=== PATIENT | female | born 1955 | race African-American/Black ===

== ENCOUNTER 2021-09-22 21:38 | Inpatient (IN) | payer MEDICARE, MEDICAID ==
[~2021-09-22] VITALS: Ht 172.7 cm; Wt 111.6 kg
[~2021-09-22 21:38] MED LIST: CARV12.545 PO; CLON0.1T PO; TOPUD PO; WARF5TAB76 PO
[2021-09-22] MEDS ORDERED: VANCOMYCIN 1 G PREMIX 200 ML IV ONE (21:45)
[2021-09-22] MEDS ORDERED: CEFTRIAXONE 1 G PREMIX 50 ML IV ONE (21:45)
[2021-09-22] MEDS ORDERED: CLINDAMYCIN 600 MG in DEXTROSE 5% WATER 50 ML IV ONE (22:00)
[2021-09-22] MEDS ORDERED: LACTATED RINGERS 500 ML IV SCH (22:00)
[2021-09-22] MEDS ORDERED: FENTANYL CITRATE 2,500 MCG in SODIUM CHLORIDE 0.9% 200 ML IV PRN (22:30)
[2021-09-22] MEDS ORDERED: MIDAZOLAM 100MG/100ML PMX 100 ML IV PRN (22:30)
[2021-09-22 22:38] LABS: BASOPHILS % 0.2 % (0.0-2.0); EOSINOPHILS % 0.9 % (0.0-5.0); HEMATOCRIT. 46.3 % (36.0-48.0); HEMOGLOBIN. 14.8 g/dL (12.0-16.0); LYMPHOCYTES % 8.1 % (20.0-50.0); MEAN CORPUSCULAR HEMOGLOBIN 28.6 pg (28.0-32.0); MEAN CORPUSCULAR VOLUME 89.6 fL (81.0-99.0); MEAN PLATELET VOLUME 9.6 fl (7.4-10.4); MONOCYTES % 6.6 % (2.0-8.0); NEUTROPHILS % 84.2 % (40.0-76.0); PLATELET 117 x1000/uL (130-400); RED BLOOD CELL COUNT 5.17 mill/uL (4.2-5.4)
[2021-09-22] MEDS ORDERED: CEFEPIME 2,000 MG in DEXT 5% WATER 100 ML IV NR (23:00)
[2021-09-22] MEDS ORDERED: EPINEPHRINE 5 MG in SODIUM CHLORIDE 0.9% 250 ML IV PRN (23:00)
[2021-09-22 23:31] LABS: CHLORIDE 104 mEq/L (98-107)
[2021-09-22 23:39] LABS: BG BASE EXCESS -2.2 mmol/L (-2.0-2.0); BG CARBOXYHEMOGLOBIN 0.5 % (0.5-1.5); BG DEOXYHEMOGLOBIN 3.8 % (0.0-5.0); BG FRACTION INSPIRED OXYGEN 100; BG HCO3 ACT 24.9 mmol/L (22.0-26.0); BG METHEMOGLOBIN 0.2 % (0.0-1.5); BG OXYGEN SATURATION 96.2 % (92.0-98.5); BG OXYHEMOGLOBIN 95.5 % (94.0-97.0); BG PCO2 51.6 mmHg (35.0-45.0); BG PH 7.301 (7.350-7.450); BG PO2 98.1 mmHg (75.0-100.0); BG SAMPLE SITE RIGHT BRACHIAL; BG TOTAL HEMOGLOBIN 14.9 g/dL (12.0-18.0); BG TOTAL RESPIRATORY RATE 20 b/min; BG VENT MODE VENT - AC
[2021-09-22] MEDS ORDERED: EPINEPHRINE 10 MG in SODIUM CHLORIDE 0.9% 250 ML IV PRN (23:45)
[2021-09-23] MEDS ORDERED: SODIUM CHLORIDE 0.9% 1000ML BAG (SEPSIS BOLUS) IV ONE (00:15)
[2021-09-23] MEDS ORDERED: NOREPINEPHRINE 32 MG in DEXTROSE 5% WATER 250 ML IV PRN (00:30)
[2021-09-23 00:51] LABS: CLARITY URINE TURBID (CLEAR); COLOR URINE DARK YELLOW (YELLOW); KETONES URINE NEGATIVE (NEGATIVE); LEUKOCYTE ESTERASE URINE TRACE (NEGATIVE); NITRITE URINE NEGATIVE (NEGATIVE); OCCULT BLOOD URINE 3+ (NEGATIVE); PROTEIN URINE 3+ (NEGATIVE); SPECIFIC GRAVITY URINE 1.023 (1.005-1.030)
[2021-09-23] MEDS ORDERED: VECURONIUM BROMIDE 10 MG/VIAL IV ONE (01:00)
[2021-09-23] MEDS ORDERED: ETOMIDATE 2MG/ML 10ML VIAL IV ONE (01:00)
[2021-09-23] MEDS ORDERED: SODIUM CHLORIDE 0.9% 10ML VIAL ONE (01:00)
[2021-09-23] MEDS ORDERED: ASPIRIN 325MG EC TABLET PO ONE (04:30)
[2021-09-23] MEDS ORDERED: ASPIRIN 300MG SUPP PR NR (05:00)
[2021-09-23] MEDS: DEXT 5%/0.45% NACL 1000ML 1,000 ML IV SCH (07:20)
[2021-09-23 08:57] LABS: BG BASE EXCESS -4.2 mmol/L (-2.0-2.0); BG CARBOXYHEMOGLOBIN 0.4 % (0.5-1.5); BG DEOXYHEMOGLOBIN 2.1 % (0.0-5.0); BG HCO3 ACT 21.6 mmol/L (22.0-26.0); BG METHEMOGLOBIN 0.3 % (0.0-1.5); BG OXYGEN SATURATION 97.9 % (92.0-98.5); BG OXYHEMOGLOBIN 97.2 % (94.0-97.0); BG PCO2 42.3 mmHg (35.0-45.0); BG PH 7.326 (7.350-7.450); BG PO2 111.6 mmHg (75.0-100.0); BG SAMPLE SITE RIGHT RADIAL; BG TOTAL HEMOGLOBIN 14.2 g/dL (12.0-18.0); BG VENT MODE VENT - AC
[2021-09-23 09:35] LABS: T4 FREE 1.15 ng/dL (0.76-1.46)
[2021-09-23] MEDS: ASPIRIN 81MG TABLET PO SCH (09:39)
[2021-09-23 09:53] LABS: CREATINE KINASE 8387 IU/L (26-192)
[2021-09-23] MEDS ORDERED: EPINEPHRINE 10 MG in SODIUM CHLORIDE 0.9% 240 ML IV PRN (10:00)
[2021-09-23 11:05] LABS: INR 2.6; PROTHROMBIN TIME 25.9 sec (9.6-11.0)
[2021-09-23 11:10] LABS: D-DIMER > 35.20 mg/L FEU (<0.50)
[2021-09-23] MEDS ORDERED: MEROPENEM 1,000 MG in SODIUM CHLORIDE 0.9% 100 ML IV SCH (14:30)
[2021-09-23] MEDS ORDERED: IPRATROPIUM/ALBUTEROL 0.5-3(2.5)MG/3ML NEB HHN PRN (14:30)
[2021-09-23] MEDS ORDERED: VANCOMYCIN 1500MG in DEXTROSE 5% WATER 250ML IV NR (15:00)
[2021-09-23 17:09] LABS: CREATINE KINASE MB FRACTION 16.7 ng/mL (0.5-3.6)
[2021-09-23] MEDS ORDERED: DEXTROSE 50% WATER 50ML SYRINGE IV PRN (18:15)
[2021-09-23] MEDS: INSULIN LISPRO 100 UNITS/ML SUBCUT SCH ×2 (18:36→21:17)
[2021-09-23] MEDS: IPRATROPIUM/ALBUTEROL 0.5-3(2.5)MG/3ML NEB HHN SCH (20:13)
[2021-09-23] MEDS ORDERED: BLOOD SUGAR DIAGNOSTIC STRIP TEST SCH (21:00)
[2021-09-23] MEDS ORDERED: FENTANYL CITRATE/PF 2,500 MCG in SODIUM CHLORIDE 0.9% 200 ML IV PRN (21:00)
[2021-09-23 23:16] LABS: CREATINE KINASE MB FRACTION 15.6 ng/mL (0.5-3.6)
[2021-09-24] VITALS (64 sets, daily range): BP systolic 85–156; BP diastolic 42–108
[2021-09-24] MEDS: DEXT 5%/0.45% NACL 1000ML 1,000 ML IV SCH ×3 (00:10→11:22)
[2021-09-24] MEDS: IPRATROPIUM/ALBUTEROL 0.5-3(2.5)MG/3ML NEB HHN SCH ×4 (02:00→21:07)
[2021-09-24] MEDS: EPINEPHRINE 10 MG in SODIUM CHLORIDE 0.9% 240 ML IV PRN ×4 (02:38→20:00)
[2021-09-24] MEDS: FENTANYL CITRATE/PF 2,500 MCG in SODIUM CHLORIDE 0.9% 200 ML IV PRN (03:55)
[2021-09-24] MEDS: MIDAZOLAM HCL 100 MG in SODIUM CHLORIDE 0.9% 80 ML IV PRN (03:56)
[2021-09-24] MEDS ORDERED: MEROPENEM 1,000 MG in SODIUM CHLORIDE 0.9% 100 ML IV SCH (05:00)
[2021-09-24 05:43] LABS: HEMATOCRIT. 44.6 % (36.0-48.0); HEMOGLOBIN. 14.7 g/dL (12.0-16.0); MEAN CORPUSCULAR HEMOGLOBIN 28.5 pg (28.0-32.0); MEAN CORPUSCULAR VOLUME 86.7 fL (81.0-99.0); MEAN PLATELET VOLUME 9.9 fl (7.4-10.4); PLATELET 136 x1000/uL (130-400); RED BLOOD CELL COUNT 5.14 mill/uL (4.2-5.4); RED CELL DISTRIBUTION WIDTH 16.3 % (11.6-14.6)
[2021-09-24] MEDS: INSULIN LISPRO 100 UNITS/ML SUBCUT SCH ×3 (05:45→17:41)
[2021-09-24] MEDS: BLOOD SUGAR DIAGNOSTIC STRIP TEST SCH ×3 (05:45→17:38)
[2021-09-24 06:22] LABS: CREATINE KINASE MB FRACTION 15.8 ng/mL (0.5-3.6)
[2021-09-24] MEDS ORDERED: POTASSIUM CHLORIDE INJ 40 MEQ in DEXT 5% WATER 250 ML IV ONE (07:00)
[2021-09-24 08:16] LABS: BG BASE EXCESS -4.1 mmol/L (-2.0-2.0); BG CARBOXYHEMOGLOBIN 0.5 % (0.5-1.5); BG DEOXYHEMOGLOBIN 0.3 % (0.0-5.0); BG FRACTION INSPIRED OXYGEN 60; BG HCO3 ACT 20.7 mmol/L (22.0-26.0); BG METHEMOGLOBIN 0.3 % (0.0-1.5); BG OXYGEN SATURATION 99.7 % (92.0-98.5); BG OXYHEMOGLOBIN 98.9 % (94.0-97.0); BG PCO2 37.2 mmHg (35.0-45.0); BG PH 7.363 (7.350-7.450); BG PO2 345.3 mmHg (75.0-100.0); BG SAMPLE SITE RIGHT RADIAL; BG TOTAL HEMOGLOBIN 14.8 g/dL (12.0-18.0); BG VENT MODE VENT - AC/VC
[2021-09-24 10:11] LABS: NUCLEATED RED BLOOD CELLS 1 /100 WBC
[2021-09-24 10:12] LABS: PLATELET ESTIMATE NORMAL
[2021-09-24 10:39] LABS: CREATINE KINASE 6089 IU/L (26-192)
[2021-09-24] MEDS: ASPIRIN 81MG TABLET PO SCH (12:20)
[2021-09-24] MEDS: PANTOPRAZOLE SODIUM 40 MG/VIAL IV SCH (14:19)
[2021-09-24 16:46] LABS: PROTHROMBIN TIME 51.6 sec (9.6-11.0)
[2021-09-24 16:54] LABS: INR 5.5
[2021-09-24] MEDS ORDERED: PHYTONADIONE 10MG/ML AMP SUBCUT NR (18:30)
[2021-09-24] MEDS: MEROPENEM 500MG in NORMAL SALINE 50ML IV SCH (21:00)
[2021-09-25] VITALS (59 sets, daily range): BP systolic 85–151; BP diastolic 40–88
[2021-09-25] MEDS: EPINEPHRINE 10 MG in SODIUM CHLORIDE 0.9% 240 ML IV PRN ×2 (00:15→04:55)
[2021-09-25] MEDS: IPRATROPIUM/ALBUTEROL 0.5-3(2.5)MG/3ML NEB HHN SCH ×5 (00:47→20:38)
[2021-09-25] MEDS: INSULIN LISPRO 100 UNITS/ML SUBCUT SCH ×4 (06:00→18:00)
[2021-09-25] MEDS: BLOOD SUGAR DIAGNOSTIC STRIP TEST SCH ×4 (06:00→18:00)
[2021-09-25 06:19] LABS: HEMATOCRIT. 41.3 % (36.0-48.0); HEMOGLOBIN. 13.8 g/dL (12.0-16.0); INR 2.3; MEAN CORPUSCULAR HEMOGLOBIN 28.8 pg (28.0-32.0); MEAN CORPUSCULAR VOLUME 86.2 fL (81.0-99.0); MEAN PLATELET VOLUME 10.5 fl (7.4-10.4); PLATELET 170 x1000/uL (130-400); PROTHROMBIN TIME 23.3 sec (9.6-11.0); RED BLOOD CELL COUNT 4.79 mill/uL (4.2-5.4); RED CELL DISTRIBUTION WIDTH 15.7 % (11.6-14.6)
[2021-09-25 06:33] LABS: CHLORIDE 113 mEq/L (98-107)
[2021-09-25 06:54] LABS: CREATINE KINASE 3716 IU/L (26-192); HEPATITIS B SURFACE ANTIGEN NEGATIVE
[2021-09-25 09:00] LABS: BG BASE EXCESS -3.8 mmol/L (-2.0-2.0); BG CARBOXYHEMOGLOBIN 0.5 % (0.5-1.5); BG DEOXYHEMOGLOBIN 3.4 % (0.0-5.0); BG FRACTION INSPIRED OXYGEN 40; BG HCO3 ACT 20.2 mmol/L (22.0-26.0); BG METHEMOGLOBIN 0.2 % (0.0-1.5); BG OXYGEN SATURATION 96.6 % (92.0-98.5); BG OXYHEMOGLOBIN 95.9 % (94.0-97.0); BG PH 7.392 (7.350-7.450); BG PO2 91.6 mmHg (75.0-100.0); BG SAMPLE SITE LEFT RADIAL; BG TOTAL HEMOGLOBIN 14.4 g/dL (12.0-18.0); BG VENT MODE VENT - AC
[2021-09-25] MEDS: MEROPENEM 500MG in NORMAL SALINE 50ML IV SCH ×2 (09:00→20:56)
[2021-09-25] MEDS ORDERED: FUROSEMIDE 40MG TABLET PO SCH (09:00)
[2021-09-25] MEDS: PANTOPRAZOLE SODIUM 40 MG/VIAL IV SCH (09:00)
[2021-09-25] MEDS: ASPIRIN 81MG TABLET PO SCH (09:00)
[2021-09-25 10:07] LABS: ANTI-NUCLEAR ANTIBODIES DIRECT Negative (Negative)
[2021-09-25] MEDS ORDERED: NOREPINEPHRINE 32 MG in DEXT 5% WATER 218 ML IV PRN (12:00)
[2021-09-25] MEDS: SODIUM HYPOCHLORITE 0.125% 473ML SOLUTION TOP SCH (12:00)
[2021-09-25] MEDS: DEXT 5%/0.45% NACL 1000ML 1,000 ML IV SCH (12:35)
[2021-09-25] MEDS ORDERED: LIDOCAINE HCL 1% 20ML VIAL (Pyxis) INJ MC SCH (13:00)
[2021-09-25 13:16] LABS: ATYPICAL LYMPHOCYTES 1; NUCLEATED RED BLOOD CELLS 1 /100 WBC; PLATELET ESTIMATE NORMAL
[2021-09-25] MEDS ORDERED: VANCOMYCIN 1 G PREMIX 200 ML IV NR (15:00)
[2021-09-25] MEDS: FENTANYL CITRATE/PF 2,500 MCG in SODIUM CHLORIDE 0.9% 200 ML IV PRN (19:03)
[2021-09-26] VITALS (96 sets, daily range): BP systolic 95–174; BP diastolic 47–101
[2021-09-26] MEDS: BLOOD SUGAR DIAGNOSTIC STRIP TEST SCH ×4 (00:15→17:40)
[2021-09-26] MEDS: IPRATROPIUM/ALBUTEROL 0.5-3(2.5)MG/3ML NEB HHN SCH ×3 (02:28→20:37)
[2021-09-26] MEDS: INSULIN LISPRO 100 UNITS/ML SUBCUT SCH ×4 (06:00→18:00)
[2021-09-26] MEDS: DEXT 5%/0.45% NACL 1000ML 1,000 ML IV SCH (06:05)
[2021-09-26 06:29] LABS: PHOSPHORUS 2.7 mg/dL (2.5-4.9)
[2021-09-26] MEDS: DEXTROSE 5% WATER 1,000 ML IV SCH (08:35)
[2021-09-26] MEDS: PANTOPRAZOLE SODIUM 40 MG/VIAL IV SCH (09:00)
[2021-09-26] MEDS: SODIUM HYPOCHLORITE 0.125% 473ML SOLUTION TOP SCH (09:00)
[2021-09-26] MEDS: ASPIRIN 81MG TABLET PO SCH (09:00)
[2021-09-26] MEDS: MEROPENEM 500MG in NORMAL SALINE 50ML IV SCH ×2 (09:00→21:16)
[2021-09-26 09:01] LABS: BG BASE EXCESS -0.7 mmol/L (-2.0-2.0); BG CARBOXYHEMOGLOBIN 1.3 % (0.5-1.5); BG DEOXYHEMOGLOBIN 7.5 % (0.0-5.0); BG FRACTION INSPIRED OXYGEN 35; BG HCO3 ACT 22.9 mmol/L (22.0-26.0); BG METHEMOGLOBIN 0.2 % (0.0-1.5); BG OXYGEN SATURATION 92.4 % (92.0-98.5); BG PCO2 34.4 mmHg (35.0-45.0); BG PH 7.441 (7.350-7.450); BG TOTAL HEMOGLOBIN 13.4 g/dL (12.0-18.0); BG VENT MODE VENT - AC
[2021-09-26 10:21] LABS: CREATINE KINASE 2197 IU/L (26-192)
[2021-09-26] MEDS ORDERED: IOHEXOL-350 100 ML BOTTLE ONE (10:54)
[2021-09-26] MEDS ORDERED: HEPARIN 5000 UNITS/ML VIAL IV PRN (11:15)
[2021-09-26 12:27] LABS: CHLORIDE 118 mEq/L (98-107)
[2021-09-26 12:42] LABS: HEMATOCRIT. 39.4 % (36.0-48.0); HEMOGLOBIN. 13.1 g/dL (12.0-16.0); MEAN CORPUSCULAR HEMOGLOBIN 28.8 pg (28.0-32.0); MEAN CORPUSCULAR VOLUME 86.6 fL (81.0-99.0); MEAN PLATELET VOLUME 9.3 fl (7.4-10.4); PLATELET 179 x1000/uL (130-400); RED BLOOD CELL COUNT 4.55 mill/uL (4.2-5.4); RED CELL DISTRIBUTION WIDTH 15.5 % (11.6-14.6)
[2021-09-26 13:10] LABS: NUCLEATED RED BLOOD CELLS 3 /100 WBC
[2021-09-26 13:11] LABS: PLATELET ESTIMATE NORMAL
[2021-09-26 13:26] LABS: INR 1.2; PARTIAL THROMBOPLASTIN TIME 26.6 sec (23.4-31.0); PROTHROMBIN TIME 12.4 sec (9.6-11.0)
[2021-09-26] MEDS ORDERED: HEPARIN 5000 UNITS/ML VIAL IV SCH (13:45)
[2021-09-26 13:46] LABS: CREATINE KINASE 2716 IU/L (26-192)
[2021-09-26] MEDS ORDERED: VANCOMYCIN 1 G PREMIX 200 ML IV SCH (15:00)
[2021-09-26] MEDS: HEPARIN 25,000 UNITS in DEXT 5% WATER 245 ML IV SCH (16:30)
[2021-09-26] MEDS: ACETYLCYSTEINE 200MG/ML 20% VIAL 4ML PO SCH (20:36)
[2021-09-27] VITALS (88 sets, daily range): BP systolic 80–169; BP diastolic 37–118
[2021-09-27] MEDS: IPRATROPIUM/ALBUTEROL 0.5-3(2.5)MG/3ML NEB HHN SCH ×4 (00:25→20:46)
[2021-09-27] MEDS: BLOOD SUGAR DIAGNOSTIC STRIP TEST SCH ×5 (00:54→23:33)
[2021-09-27] MEDS: MIDAZOLAM HCL 100 MG in SODIUM CHLORIDE 0.9% 80 ML IV PRN (03:32)
[2021-09-27] MEDS: INSULIN LISPRO 100 UNITS/ML SUBCUT SCH ×5 (06:00→23:33)
[2021-09-27 07:37] LABS: HEMATOCRIT. 38.6 % (36.0-48.0); HEMOGLOBIN. 12.7 g/dL (12.0-16.0); MEAN CORPUSCULAR HEMOGLOBIN 28.8 pg (28.0-32.0); MEAN CORPUSCULAR VOLUME 87.8 fL (81.0-99.0); MEAN PLATELET VOLUME 9.9 fl (7.4-10.4); PLATELET 211 x1000/uL (130-400); RED CELL DISTRIBUTION WIDTH 15.6 % (11.6-14.6)
[2021-09-27] MEDS: ACETYLCYSTEINE 200MG/ML 20% VIAL 4ML PO SCH ×3 (08:51→20:46)
[2021-09-27 09:12] LABS: PLATELET ESTIMATE NORMAL
[2021-09-27] MEDS: HEPARIN 25,000 UNITS in DEXT 5% WATER 245 ML IV SCH (09:15)
[2021-09-27 09:21] LABS: BG BASE EXCESS -0.2 mmol/L (-2.0-2.0); BG CARBOXYHEMOGLOBIN 1.2 % (0.5-1.5); BG DEOXYHEMOGLOBIN 6.4 % (0.0-5.0); BG FRACTION INSPIRED OXYGEN 35; BG HCO3 ACT 23.5 mmol/L (22.0-26.0); BG METHEMOGLOBIN 0.1 % (0.0-1.5); BG OXYGEN SATURATION 93.5 % (92.0-98.5); BG OXYHEMOGLOBIN 92.3 % (94.0-97.0); BG PCO2 35.2 mmHg (35.0-45.0); BG PH 7.442 (7.350-7.450); BG PO2 65.7 mmHg (75.0-100.0); BG SAMPLE SITE RIGHT RADIAL; BG TOTAL HEMOGLOBIN 13.5 g/dL (12.0-18.0); BG VENT MODE VENT - AC/VC
[2021-09-27] MEDS: PANTOPRAZOLE SODIUM 40 MG/VIAL IV SCH (09:29)
[2021-09-27] MEDS: DEXTROSE 5% WATER 1,000 ML IV SCH ×4 (09:30→23:45)
[2021-09-27] MEDS: ASPIRIN 81MG TABLET PO SCH (09:31)
[2021-09-27] MEDS: MEROPENEM 500MG in NORMAL SALINE 50ML IV SCH ×2 (09:31→20:51)
[2021-09-27] MEDS: SODIUM HYPOCHLORITE 0.125% 473ML SOLUTION TOP SCH (09:32)
[2021-09-27] MEDS: FENTANYL CITRATE/PF 2,500 MCG in SODIUM CHLORIDE 0.9% 200 ML IV PRN ×2 (11:33→19:46)
[2021-09-27] MEDS ORDERED: VANCOMYCIN 1 G PREMIX 200 ML IV NR (15:00)
[2021-09-28] VITALS (47 sets, daily range): BP systolic 92–138; BP diastolic 57–80
[2021-09-28] MEDS: HEPARIN 25,000 UNITS in DEXT 5% WATER 245 ML IV SCH ×2 (01:49→17:03)
[2021-09-28] MEDS: IPRATROPIUM/ALBUTEROL 0.5-3(2.5)MG/3ML NEB HHN SCH ×4 (02:27→21:30)
[2021-09-28] MEDS: INSULIN LISPRO 100 UNITS/ML SUBCUT SCH ×4 (05:22→23:03)
[2021-09-28] MEDS: BLOOD SUGAR DIAGNOSTIC STRIP TEST SCH ×4 (05:22→23:03)
[2021-09-28 06:57] LABS: HEMATOCRIT. 36.4 % (36.0-48.0); HEMOGLOBIN. 11.8 g/dL (12.0-16.0); MEAN CORPUSCULAR HEMOGLOBIN 28.1 pg (28.0-32.0); MEAN CORPUSCULAR VOLUME 87.1 fL (81.0-99.0); MEAN PLATELET VOLUME 10.3 fl (7.4-10.4); PLATELET 216 x1000/uL (130-400); RED BLOOD CELL COUNT 4.18 mill/uL (4.2-5.4); RED CELL DISTRIBUTION WIDTH 15.5 % (11.6-14.6)
[2021-09-28] MEDS ORDERED: POTASSIUM CHLORIDE 20MEQ/PACKET PO NR (08:15)
[2021-09-28] MEDS: MEROPENEM 500MG in NORMAL SALINE 50ML IV SCH (08:19)
[2021-09-28] MEDS: ASPIRIN 81MG TABLET PO SCH (08:19)
[2021-09-28] MEDS: PANTOPRAZOLE SODIUM 40 MG/VIAL IV SCH (08:19)
[2021-09-28] MEDS: SODIUM HYPOCHLORITE 0.125% 473ML SOLUTION TOP SCH (08:20)
[2021-09-28] MEDS: ACETYLCYSTEINE 200MG/ML 20% VIAL 4ML PO SCH ×2 (08:51→21:30)
[2021-09-28 10:35] LABS: NUCLEATED RED BLOOD CELLS 1 /100 WBC; PLATELET ESTIMATE NORMAL
[2021-09-28] MEDS ORDERED: VANCOMYCIN 1 G PREMIX 200 ML IV SCH (12:00)
[2021-09-28 13:02] LABS: BG BASE EXCESS 0.9 mmol/L (-2.0-2.0); BG CARBOXYHEMOGLOBIN 0.5 % (0.5-1.5); BG DEOXYHEMOGLOBIN 3.5 % (0.0-5.0); BG HCO3 ACT 26.4 mmol/L (22.0-26.0); BG METHEMOGLOBIN 0.2 % (0.0-1.5); BG OXYGEN SATURATION 96.5 % (92.0-98.5); BG OXYHEMOGLOBIN 95.8 % (94.0-97.0); BG PCO2 45.6 mmHg (35.0-45.0); BG PH 7.381 (7.350-7.450); BG PO2 86.3 mmHg (75.0-100.0); BG SAMPLE SITE RIGHT RADIAL; BG TOTAL HEMOGLOBIN 12.4 g/dL (12.0-18.0); BG VENT MODE VENT - AC
[2021-09-28] MEDS: DEXTROSE 5% WATER 1,000 ML IV SCH (13:05)
[2021-09-28] MEDS: FENTANYL CITRATE/PF 2,500 MCG in SODIUM CHLORIDE 0.9% 200 ML IV PRN (17:03)
[2021-09-28] MEDS: MIDAZOLAM HCL 100 MG in SODIUM CHLORIDE 0.9% 80 ML IV PRN (17:04)
[2021-09-28 21:47] LABS: CREATINE KINASE 1577 IU/L (26-192)
[2021-09-29] VITALS (44 sets, daily range): BP systolic 89–123; BP diastolic 56–74
[2021-09-29] MEDS: IPRATROPIUM/ALBUTEROL 0.5-3(2.5)MG/3ML NEB HHN SCH ×4 (01:33→20:41)
[2021-09-29] MEDS: DEXTROSE 5% WATER 1,000 ML IV SCH (03:03)
[2021-09-29] MEDS ORDERED: MIDAZOLAM 100MG/100ML PMX 100 ML IV PRN (05:00)
[2021-09-29] MEDS: INSULIN LISPRO 100 UNITS/ML SUBCUT SCH ×3 (06:00→18:00)
[2021-09-29] MEDS: BLOOD SUGAR DIAGNOSTIC STRIP TEST SCH ×3 (06:40→18:00)
[2021-09-29 06:49] LABS: HEMATOCRIT. 34.7 % (36.0-48.0); HEMOGLOBIN. 11.3 g/dL (12.0-16.0); MEAN CORPUSCULAR HEMOGLOBIN 28.8 pg (28.0-32.0); MEAN CORPUSCULAR VOLUME 88.5 fL (81.0-99.0); MEAN PLATELET VOLUME 8.7 fl (7.4-10.4); PLATELET 193 x1000/uL (130-400); RED BLOOD CELL COUNT 3.92 mill/uL (4.2-5.4); RED CELL DISTRIBUTION WIDTH 15.8 % (11.6-14.6)
[2021-09-29 07:12] LABS: PHOSPHORUS 4.6 mg/dL (2.5-4.9)
[2021-09-29] MEDS: PANTOPRAZOLE SODIUM 40 MG/VIAL IV SCH (08:08)
[2021-09-29] MEDS: ASPIRIN 81MG TABLET PO SCH (08:08)
[2021-09-29] MEDS: HEPARIN 25,000 UNITS in DEXT 5% WATER 245 ML IV SCH (08:08)
[2021-09-29] MEDS: SODIUM HYPOCHLORITE 0.125% 473ML SOLUTION TOP SCH (08:09)
[2021-09-29] MEDS: ACETYLCYSTEINE 200MG/ML 20% VIAL 4ML PO SCH (09:00)
[2021-09-29 10:48] LABS: BG BASE EXCESS -1.4 mmol/L (-2.0-2.0); BG CARBOXYHEMOGLOBIN 0.3 % (0.5-1.5); BG FRACTION INSPIRED OXYGEN 50; BG HCO3 ACT 23.7 mmol/L (22.0-26.0); BG METHEMOGLOBIN 0.3 % (0.0-1.5); BG OXYHEMOGLOBIN 97.4 % (94.0-97.0); BG PCO2 41.7 mmHg (35.0-45.0); BG PH 7.373 (7.350-7.450); BG PO2 113.9 mmHg (75.0-100.0); BG SAMPLE SITE RIGHT RADIAL; BG TOTAL HEMOGLOBIN 11.4 g/dL (12.0-18.0); BG VENT MODE VENT - AC
[2021-09-29 10:55] LABS: PLATELET ESTIMATE NORMAL
[2021-09-29] MEDS: METOCLOPRAMIDE HCL 10MG/2ML VIAL IV SCH (18:15)
[2021-09-30] VITALS (47 sets, daily range): BP systolic 97–168; BP diastolic 59–113
[2021-09-30] MEDS: FENTANYL CITRATE/PF 2,500 MCG in SODIUM CHLORIDE 0.9% 200 ML IV PRN (00:46)
[2021-09-30] MEDS: BLOOD SUGAR DIAGNOSTIC STRIP TEST SCH ×5 (00:46→23:22)
[2021-09-30] MEDS: IPRATROPIUM/ALBUTEROL 0.5-3(2.5)MG/3ML NEB HHN SCH ×4 (00:58→20:56)
[2021-09-30] MEDS: HEPARIN 25,000 UNITS in DEXT 5% WATER 245 ML IV SCH ×2 (02:10→19:22)
[2021-09-30] MEDS: DEXTROSE 5% WATER 1,000 ML IV SCH (02:10)
[2021-09-30 05:31] LABS: BASOPHILS % 0.4 % (0.0-2.0); EOSINOPHILS % 0.7 % (0.0-5.0); HEMATOCRIT. 36.5 % (36.0-48.0); HEMOGLOBIN. 11.8 g/dL (12.0-16.0); MEAN CORPUSCULAR HEMOGLOBIN 28.6 pg (28.0-32.0); MEAN CORPUSCULAR VOLUME 88.4 fL (81.0-99.0); MONOCYTES % 3.3 % (2.0-8.0); NEUTROPHILS % 87.6 % (40.0-76.0); PLATELET 229 x1000/uL (130-400); RED BLOOD CELL COUNT 4.13 mill/uL (4.2-5.4); RED CELL DISTRIBUTION WIDTH 15.5 % (11.6-14.6)
[2021-09-30 06:00] LABS: PHOSPHORUS 3.9 mg/dL (2.5-4.9)
[2021-09-30] MEDS: INSULIN LISPRO 100 UNITS/ML SUBCUT SCH ×5 (08:00→23:22)
[2021-09-30] MEDS ORDERED: POTASSIUM CHLORIDE 20MEQ/PACKET NG NR (09:00)
[2021-09-30] MEDS: PANTOPRAZOLE SODIUM 40 MG/VIAL IV SCH (09:34)
[2021-09-30] MEDS: ASPIRIN 81MG TABLET PO SCH (09:34)
[2021-09-30] MEDS: FUROSEMIDE 40MG/4ML VIAL IVP SCH ×2 (09:34→17:08)
[2021-09-30] MEDS: METOCLOPRAMIDE HCL 10MG/2ML VIAL IV SCH ×2 (09:34→17:08)
[2021-09-30] MEDS: SODIUM HYPOCHLORITE 0.125% 473ML SOLUTION TOP SCH (09:35)
[2021-09-30 10:12] LABS: BG BASE EXCESS 1.8 mmol/L (-2.0-2.0); BG CARBOXYHEMOGLOBIN 0.8 % (0.5-1.5); BG DEOXYHEMOGLOBIN 9.3 % (0.0-5.0); BG FRACTION INSPIRED OXYGEN 30; BG HCO3 ACT 26.1 mmol/L (22.0-26.0); BG METHEMOGLOBIN 0.3 % (0.0-1.5); BG OXYGEN SATURATION 90.6 % (92.0-98.5); BG OXYHEMOGLOBIN 89.6 % (94.0-97.0); BG PH 7.433 (7.350-7.450); BG PO2 58.3 mmHg (75.0-100.0); BG SAMPLE SITE RIGHT RADIAL; BG TOTAL HEMOGLOBIN 12.2 g/dL (12.0-18.0); BG VENT MODE VENT - AC
[2021-09-30] MEDS: MIDAZOLAM HCL 100 MG in SODIUM CHLORIDE 0.9% 100 ML IV PRN ×2 (11:57→19:21)
[2021-09-30] MEDS ORDERED: MEROPENEM 500 MG in SODIUM CHLORIDE 0.9% 50 ML IV SCH (17:00)
[2021-09-30] MEDS: MEROPENEM 500 MG in SODIUM CHLORIDE 0.9% 50 ML IV SCH (19:21)
[2021-10-01] VITALS (46 sets, daily range): BP systolic 88–130; BP diastolic 56–88
[2021-10-01] MEDS: IPRATROPIUM/ALBUTEROL 0.5-3(2.5)MG/3ML NEB HHN SCH ×4 (00:10→20:36)
[2021-10-01] MEDS: FENTANYL CITRATE/PF 2,500 MCG in SODIUM CHLORIDE 0.9% 200 ML IV PRN (02:20)
[2021-10-01] MEDS: DEXTROSE 5% WATER 1,000 ML IV SCH (03:44)
[2021-10-01] MEDS: BLOOD SUGAR DIAGNOSTIC STRIP TEST SCH ×4 (05:28→23:00)
[2021-10-01] MEDS: INSULIN LISPRO 100 UNITS/ML SUBCUT SCH ×4 (05:28→23:00)
[2021-10-01] MEDS: MEROPENEM 500 MG in SODIUM CHLORIDE 0.9% 50 ML IV SCH ×2 (05:53→17:11)
[2021-10-01 06:11] LABS: BASOPHILS % 0.4 % (0.0-2.0); EOSINOPHILS % 0.5 % (0.0-5.0); HEMATOCRIT. 35.1 % (36.0-48.0); HEMOGLOBIN. 10.9 g/dL (12.0-16.0); LYMPHOCYTES % 9.4 % (20.0-50.0); MEAN CORPUSCULAR HEMOGLOBIN 27.3 pg (28.0-32.0); MEAN CORPUSCULAR VOLUME 87.9 fL (81.0-99.0); MEAN PLATELET VOLUME 10.2 fl (7.4-10.4); MONOCYTES % 5.1 % (2.0-8.0); NEUTROPHILS % 84.6 % (40.0-76.0); PLATELET 218 x1000/uL (130-400); RED CELL DISTRIBUTION WIDTH 15.6 % (11.6-14.6)
[2021-10-01] MEDS: FUROSEMIDE 40MG/4ML VIAL IVP SCH ×2 (06:37→17:10)
[2021-10-01 08:44] LABS: BG BASE EXCESS 2.9 mmol/L (-2.0-2.0); BG CARBOXYHEMOGLOBIN 0.3 % (0.5-1.5); BG DEOXYHEMOGLOBIN 3.2 % (0.0-5.0); BG FRACTION INSPIRED OXYGEN 40; BG HCO3 ACT 27.6 mmol/L (22.0-26.0); BG METHEMOGLOBIN 0.3 % (0.0-1.5); BG OXYGEN SATURATION 96.8 % (92.0-98.5); BG OXYHEMOGLOBIN 96.2 % (94.0-97.0); BG PCO2 42.6 mmHg (35.0-45.0); BG PH 7.429 (7.350-7.450); BG PO2 92.4 mmHg (75.0-100.0); BG SAMPLE SITE RIGHT RADIAL; BG TOTAL HEMOGLOBIN 11.9 g/dL (12.0-18.0); BG VENT MODE VENT - AC
[2021-10-01] MEDS: ASPIRIN 81MG TABLET PO SCH (09:33)
[2021-10-01] MEDS: METOCLOPRAMIDE HCL 10MG/2ML VIAL IV SCH ×2 (09:33→17:10)
[2021-10-01] MEDS: PANTOPRAZOLE SODIUM 40 MG/VIAL IV SCH (09:33)
[2021-10-01] MEDS: HEPARIN 5000 UNITS/ML VIAL IV PRN (09:34)
[2021-10-01] MEDS: SODIUM HYPOCHLORITE 0.125% 473ML SOLUTION TOP SCH (09:34)
[2021-10-01] MEDS: HEPARIN 25,000 UNITS in DEXT 5% WATER 245 ML IV SCH (10:59)
[2021-10-02] VITALS (46 sets, daily range): BP systolic 82–123; BP diastolic 55–80
[2021-10-02] MEDS: HEPARIN 25,000 UNITS in DEXT 5% WATER 245 ML IV SCH ×2 (00:08→15:47)
[2021-10-02] MEDS: IPRATROPIUM/ALBUTEROL 0.5-3(2.5)MG/3ML NEB HHN SCH ×4 (01:27→21:16)
[2021-10-02 01:56] LABS: INR 1.1
[2021-10-02] MEDS: FENTANYL CITRATE/PF 2,500 MCG in SODIUM CHLORIDE 0.9% 200 ML IV PRN ×2 (02:40→17:23)
[2021-10-02] MEDS: MEROPENEM 500 MG in SODIUM CHLORIDE 0.9% 50 ML IV SCH ×2 (05:17→17:39)
[2021-10-02] MEDS: BLOOD SUGAR DIAGNOSTIC STRIP TEST SCH ×3 (05:17→17:39)
[2021-10-02] MEDS: INSULIN LISPRO 100 UNITS/ML SUBCUT SCH ×3 (05:17→17:39)
[2021-10-02] MEDS: FUROSEMIDE 40MG/4ML VIAL IVP SCH ×2 (06:34→17:39)
[2021-10-02] MEDS: MIDAZOLAM HCL 100 MG in SODIUM CHLORIDE 0.9% 100 ML IV PRN (06:34)
[2021-10-02 06:55] LABS: BASOPHILS % 0.5 % (0.0-2.0); EOSINOPHILS % 0.7 % (0.0-5.0); HEMATOCRIT. 33.3 % (36.0-48.0); HEMOGLOBIN. 10.6 g/dL (12.0-16.0); LYMPHOCYTES % 11.5 % (20.0-50.0); MEAN CORPUSCULAR HEMOGLOBIN 27.7 pg (28.0-32.0); MEAN CORPUSCULAR VOLUME 86.9 fL (81.0-99.0); MEAN PLATELET VOLUME 10.5 fl (7.4-10.4); NEUTROPHILS % 80.3 % (40.0-76.0); PLATELET 227 x1000/uL (130-400); RED BLOOD CELL COUNT 3.83 mill/uL (4.2-5.4); RED CELL DISTRIBUTION WIDTH 15.2 % (11.6-14.6)
[2021-10-02] MEDS: SODIUM HYPOCHLORITE 0.125% 473ML SOLUTION TOP SCH (08:32)
[2021-10-02] MEDS: METOCLOPRAMIDE HCL 10MG/2ML VIAL IV SCH ×2 (08:32→17:39)
[2021-10-02] MEDS: PANTOPRAZOLE SODIUM 40 MG/VIAL IV SCH (08:32)
[2021-10-02] MEDS: ASPIRIN 81MG TABLET PO SCH (08:32)
[2021-10-03] VITALS (44 sets, daily range): BP systolic 109–170; BP diastolic 60–140
[2021-10-03] MEDS: IPRATROPIUM/ALBUTEROL 0.5-3(2.5)MG/3ML NEB HHN SCH ×4 (00:20→20:38)
[2021-10-03] MEDS: BLOOD SUGAR DIAGNOSTIC STRIP TEST SCH ×4 (00:36→17:48)
[2021-10-03] MEDS: INSULIN LISPRO 100 UNITS/ML SUBCUT SCH ×4 (06:00→18:00)
[2021-10-03] MEDS: MEROPENEM 500 MG in SODIUM CHLORIDE 0.9% 50 ML IV SCH ×2 (06:21→17:48)
[2021-10-03] MEDS: FUROSEMIDE 40MG/4ML VIAL IVP SCH ×2 (06:21→17:46)
[2021-10-03] MEDS: HEPARIN 25,000 UNITS in DEXT 5% WATER 245 ML IV SCH ×2 (07:30→21:52)
[2021-10-03 08:52] LABS: BG CARBOXYHEMOGLOBIN 0.9 % (0.5-1.5); BG DEOXYHEMOGLOBIN 4.4 % (0.0-5.0); BG FRACTION INSPIRED OXYGEN 35; BG HCO3 ACT 30.9 mmol/L (22.0-26.0); BG METHEMOGLOBIN 0.4 % (0.0-1.5); BG OXYGEN SATURATION 95.5 % (92.0-98.5); BG OXYHEMOGLOBIN 94.3 % (94.0-97.0); BG PCO2 46.5 mmHg (35.0-45.0); BG PH 7.441 (7.350-7.450); BG PO2 77.5 mmHg (75.0-100.0); BG SAMPLE SITE RIGHT RADIAL; BG TOTAL HEMOGLOBIN 11.6 g/dL (12.0-18.0); BG TOTAL RESPIRATORY RATE 20 b/min; BG VENT MODE VENT - AC
[2021-10-03] MEDS: METOCLOPRAMIDE HCL 10MG/2ML VIAL IV SCH ×2 (09:06→17:46)
[2021-10-03] MEDS: ASPIRIN 81MG TABLET PO SCH (09:06)
[2021-10-03] MEDS: PANTOPRAZOLE SODIUM 40 MG/VIAL IV SCH (09:06)
[2021-10-03] MEDS: SODIUM HYPOCHLORITE 0.125% 473ML SOLUTION TOP SCH (09:07)
[2021-10-03] MEDS: MIDAZOLAM HCL 100 MG in SODIUM CHLORIDE 0.9% 100 ML IV PRN (09:08)
[2021-10-03 09:50] LABS: BASOPHILS % 0.6 % (0.0-2.0); EOSINOPHILS % 0.9 % (0.0-5.0); HEMATOCRIT. 32.1 % (36.0-48.0); HEMOGLOBIN. 10.4 g/dL (12.0-16.0); LYMPHOCYTES % 8.5 % (20.0-50.0); MEAN CORPUSCULAR HEMOGLOBIN 28.4 pg (28.0-32.0); MEAN CORPUSCULAR VOLUME 87.5 fL (81.0-99.0); MEAN PLATELET VOLUME 10.1 fl (7.4-10.4); MONOCYTES % 5.9 % (2.0-8.0); NEUTROPHILS % 84.1 % (40.0-76.0); PLATELET 212 x1000/uL (130-400); RED BLOOD CELL COUNT 3.67 mill/uL (4.2-5.4); RED CELL DISTRIBUTION WIDTH 15.1 % (11.6-14.6)
[2021-10-03 12:13] LABS: BG BASE EXCESS 5.9 mmol/L (-2.0-2.0); BG CARBOXYHEMOGLOBIN 0.4 % (0.5-1.5); BG DEOXYHEMOGLOBIN 10.2 % (0.0-5.0); BG FRACTION INSPIRED OXYGEN 35; BG HCO3 ACT 31.4 mmol/L (22.0-26.0); BG METHEMOGLOBIN 0.4 % (0.0-1.5); BG OXYGEN SATURATION 89.7 % (92.0-98.5); BG PCO2 49.8 mmHg (35.0-45.0); BG PH 7.418 (7.350-7.450); BG PO2 60.1 mmHg (75.0-100.0); BG SAMPLE SITE RIGHT RADIAL; BG TOTAL HEMOGLOBIN 11.7 g/dL (12.0-18.0); BG VENT MODE VENT - CPAP
[2021-10-03] MEDS ORDERED: LORAZEPAM 2MG/ML CPJ IV PRN (13:00)
[2021-10-03] MEDS ORDERED: NALOXONE HCL 0.4MG/ML VIAL IV PRN (13:00)
[2021-10-03] MEDS ORDERED: MORPHINE SULFATE 2 MG/ML CPJ (NOT FOR IM USE) IV PRN (13:00)
[2021-10-04] VITALS (48 sets, daily range): BP systolic 103–157; BP diastolic 63–101
[2021-10-04] MEDS: IPRATROPIUM/ALBUTEROL 0.5-3(2.5)MG/3ML NEB HHN SCH ×4 (03:17→20:23)
[2021-10-04] MEDS: INSULIN LISPRO 100 UNITS/ML SUBCUT SCH ×5 (06:00→23:39)
[2021-10-04] MEDS: BLOOD SUGAR DIAGNOSTIC STRIP TEST SCH ×5 (06:00→23:39)
[2021-10-04] MEDS: MEROPENEM 500 MG in SODIUM CHLORIDE 0.9% 50 ML IV SCH ×2 (06:00→17:17)
[2021-10-04] MEDS: FUROSEMIDE 40MG/4ML VIAL IVP SCH ×2 (07:41→17:17)
[2021-10-04] MEDS: SODIUM HYPOCHLORITE 0.125% 473ML SOLUTION TOP SCH (09:08)
[2021-10-04] MEDS: PANTOPRAZOLE SODIUM 40 MG/VIAL IV SCH (09:09)
[2021-10-04] MEDS: METOCLOPRAMIDE HCL 10MG/2ML VIAL IV SCH ×2 (09:09→17:17)
[2021-10-04] MEDS: ASPIRIN 81MG TABLET PO SCH (09:09)
[2021-10-04 11:01] LABS: BASOPHILS % 0.4 % (0.0-2.0); EOSINOPHILS % 0.7 % (0.0-5.0); HEMATOCRIT. 34.2 % (36.0-48.0); HEMOGLOBIN. 10.8 g/dL (12.0-16.0); LYMPHOCYTES % 10.8 % (20.0-50.0); MEAN CORPUSCULAR HEMOGLOBIN 27.7 pg (28.0-32.0); MEAN CORPUSCULAR VOLUME 87.4 fL (81.0-99.0); MEAN PLATELET VOLUME 11.4 fl (7.4-10.4); MONOCYTES % 6.3 % (2.0-8.0); NEUTROPHILS % 81.8 % (40.0-76.0); PLATELET 226 x1000/uL (130-400); RED BLOOD CELL COUNT 3.91 mill/uL (4.2-5.4); RED CELL DISTRIBUTION WIDTH 15.2 % (11.6-14.6)
[2021-10-04 11:01] LABS: BG BASE EXCESS 8.4 mmol/L (-2.0-2.0); BG CARBOXYHEMOGLOBIN 0.5 % (0.5-1.5); BG DEOXYHEMOGLOBIN 2.7 % (0.0-5.0); BG FRACTION INSPIRED OXYGEN 40; BG HCO3 ACT 32.1 mmol/L (22.0-26.0); BG METHEMOGLOBIN 0.2 % (0.0-1.5); BG OXYGEN SATURATION 97.3 % (92.0-98.5); BG OXYHEMOGLOBIN 96.6 % (94.0-97.0); BG PCO2 41.1 mmHg (35.0-45.0); BG PH 7.511 (7.350-7.450); BG PO2 90.2 mmHg (75.0-100.0); BG SAMPLE SITE RIGHT RADIAL; BG TOTAL HEMOGLOBIN 11.7 g/dL (12.0-18.0); BG VENT MODE VENT - CPAP
[2021-10-04] MEDS: HEPARIN 25,000 UNITS in DEXT 5% WATER 245 ML IV SCH (13:39)
[2021-10-05] VITALS (34 sets, daily range): BP systolic 133–178; BP diastolic 59–136
[2021-10-05] MEDS: IPRATROPIUM/ALBUTEROL 0.5-3(2.5)MG/3ML NEB HHN SCH ×4 (02:40→20:34)
[2021-10-05] MEDS: HEPARIN 25,000 UNITS in DEXT 5% WATER 245 ML IV SCH ×2 (04:31→16:25)
[2021-10-05] MEDS: BLOOD SUGAR DIAGNOSTIC STRIP TEST SCH ×4 (05:45→23:27)
[2021-10-05] MEDS: INSULIN LISPRO 100 UNITS/ML SUBCUT SCH ×3 (05:45→18:00)
[2021-10-05] MEDS: MEROPENEM 500 MG in SODIUM CHLORIDE 0.9% 50 ML IV SCH ×2 (06:03→17:29)
[2021-10-05 06:48] LABS: BASOPHILS % 0.7 % (0.0-2.0); EOSINOPHILS % 0.6 % (0.0-5.0); HEMATOCRIT. 33.3 % (36.0-48.0); HEMOGLOBIN. 10.8 g/dL (12.0-16.0); LYMPHOCYTES % 12.6 % (20.0-50.0); MEAN CORPUSCULAR HEMOGLOBIN 28.2 pg (28.0-32.0); MEAN CORPUSCULAR VOLUME 86.5 fL (81.0-99.0); MEAN PLATELET VOLUME 10.6 fl (7.4-10.4); NEUTROPHILS % 78.1 % (40.0-76.0); PLATELET 214 x1000/uL (130-400); RED BLOOD CELL COUNT 3.85 mill/uL (4.2-5.4); RED CELL DISTRIBUTION WIDTH 15.1 % (11.6-14.6)
[2021-10-05 06:52] LABS: CHLORIDE 107 mEq/L (98-107)
[2021-10-05] MEDS: METOCLOPRAMIDE HCL 10MG/2ML VIAL IV SCH ×2 (08:23→17:29)
[2021-10-05] MEDS: ASPIRIN 81MG TABLET PO SCH (08:23)
[2021-10-05] MEDS: PANTOPRAZOLE SODIUM 40 MG/VIAL IV SCH (08:23)
[2021-10-05] MEDS: FUROSEMIDE 40MG/4ML VIAL IVP SCH ×2 (08:23→17:29)
[2021-10-05] MEDS: SODIUM HYPOCHLORITE 0.125% 473ML SOLUTION TOP SCH (08:24)
[2021-10-05] MEDS: HEPARIN 5000 UNITS/ML VIAL IV PRN (08:54)
[2021-10-05] MEDS ORDERED: WARFARIN SODIUM 5MG TABLET PO NR (21:00)
[2021-10-05] MEDS: ONDANSETRON HCL 4MG/2ML INJ IV PRN (21:35)
[2021-10-06] VITALS (19 sets, daily range): BP systolic 102–173; BP diastolic 44–106
[2021-10-06] MEDS: IPRATROPIUM/ALBUTEROL 0.5-3(2.5)MG/3ML NEB HHN SCH ×4 (02:33→22:21)
[2021-10-06 03:23] LABS: INR 1.2; PARTIAL THROMBOPLASTIN TIME 59.5 sec (23.4-31.0); PROTHROMBIN TIME 12.5 sec (9.6-11.0)
[2021-10-06] MEDS: BLOOD SUGAR DIAGNOSTIC STRIP TEST SCH ×3 (05:12→17:10)
[2021-10-06] MEDS: INSULIN LISPRO 100 UNITS/ML SUBCUT SCH ×4 (06:00→17:10)
[2021-10-06] MEDS: SODIUM HYPOCHLORITE 0.125% 473ML SOLUTION TOP SCH (08:32)
[2021-10-06] MEDS: PANTOPRAZOLE SODIUM 40 MG/VIAL IV SCH (08:32)
[2021-10-06] MEDS: ASPIRIN 81MG TABLET PO SCH (08:32)
[2021-10-06] MEDS: METOCLOPRAMIDE HCL 10MG/2ML VIAL IV SCH ×2 (08:32→17:19)
[2021-10-06] MEDS: FUROSEMIDE 40MG/4ML VIAL IVP SCH ×2 (08:32→17:18)
[2021-10-06] MEDS: HEPARIN 25,000 UNITS in DEXT 5% WATER 245 ML IV SCH ×3 (08:54→22:35)
[2021-10-06] MEDS: ONDANSETRON HCL 4MG/2ML INJ IV PRN ×2 (09:21→17:18)
[2021-10-06 13:03] LABS: BASOPHILS % 1.4 % (0.0-2.0); EOSINOPHILS % 0.5 % (0.0-5.0); HEMATOCRIT. 33.5 % (36.0-48.0); HEMOGLOBIN. 10.8 g/dL (12.0-16.0); LYMPHOCYTES % 11.6 % (20.0-50.0); MEAN CORPUSCULAR HEMOGLOBIN 27.9 pg (28.0-32.0); MEAN CORPUSCULAR VOLUME 86.9 fL (81.0-99.0); MEAN PLATELET VOLUME 10.4 fl (7.4-10.4); MONOCYTES % 6.9 % (2.0-8.0); NEUTROPHILS % 79.6 % (40.0-76.0); PLATELET 240 x1000/uL (130-400); RED BLOOD CELL COUNT 3.86 mill/uL (4.2-5.4); RED CELL DISTRIBUTION WIDTH 14.9 % (11.6-14.6)
[2021-10-06] MEDS ORDERED: WARFARIN SODIUM 5MG TABLET PO SCH (18:00)
[2021-10-07] VITALS: BP_SYST 119; BP_SYST 120; BP_DIAS 65; BP_DIAS 75
[2021-10-07] MEDS: IPRATROPIUM/ALBUTEROL 0.5-3(2.5)MG/3ML NEB HHN SCH ×3 (03:01→15:00)
[2021-10-07 04:00] VITALS: BP 120/68
[2021-10-07 04:58] LABS: BASOPHILS % 1.1 % (0.0-2.0); EOSINOPHILS % 0.8 % (0.0-5.0); HEMATOCRIT. 33.9 % (36.0-48.0); HEMOGLOBIN. 11.2 g/dL (12.0-16.0); LYMPHOCYTES % 18.4 % (20.0-50.0); MEAN CORPUSCULAR HEMOGLOBIN 28.6 pg (28.0-32.0); MEAN CORPUSCULAR VOLUME 86.9 fL (81.0-99.0); NEUTROPHILS % 71.7 % (40.0-76.0); PLATELET 251 x1000/uL (130-400); RED CELL DISTRIBUTION WIDTH 14.8 % (11.6-14.6)
[2021-10-07 05:30] LABS: INR 1.3; PARTIAL THROMBOPLASTIN TIME 74.9 sec (23.4-31.0); PROTHROMBIN TIME 13.4 sec (9.6-11.0)
[2021-10-07] MEDS: INSULIN LISPRO 100 UNITS/ML SUBCUT SCH ×4 (06:00→18:00)
[2021-10-07] MEDS: BLOOD SUGAR DIAGNOSTIC STRIP TEST SCH ×4 (06:59→18:00)
[2021-10-07 08:00] VITALS: BP 138/84
[2021-10-07] MEDS ORDERED: POTASSIUM CHLORIDE 20MEQ TABLET SR PO NR (08:15)
[2021-10-07] MEDS: FUROSEMIDE 40MG/4ML VIAL IVP SCH ×2 (09:57→19:08)
[2021-10-07] MEDS: PANTOPRAZOLE SODIUM 40 MG/VIAL IV SCH (09:57)
[2021-10-07] MEDS: ASPIRIN 81MG TABLET PO SCH (09:57)
[2021-10-07] MEDS: METOCLOPRAMIDE HCL 10MG/2ML VIAL IV SCH ×2 (09:58→19:08)
[2021-10-07 12:00] VITALS: BP 141/88
[2021-10-07 13:08] LABS: HEMATOCRIT 35.3 % (36.0-48.0); HEMOGLOBIN 11.4 g/dL (12.0-16.0)
[2021-10-07 16:00] VITALS: BP 100/74
[2021-10-07] MEDS ORDERED: WARFARIN SODIUM 3MG TABLET PO SCH (18:00)
[2021-10-07] MEDS: SODIUM HYPOCHLORITE 0.125% 473ML SOLUTION TOP SCH (19:21)
[2021-10-07 20:00] VITALS: BP 126/67
[2021-10-08] VITALS: BP 139/77
[2021-10-08 03:38] VITALS: BP 128/68
[2021-10-08] MEDS: INSULIN LISPRO 100 UNITS/ML SUBCUT SCH ×3 (06:00→12:00)
[2021-10-08 06:02] LABS: INR 1.5; PROTHROMBIN TIME 15.8 sec (9.6-11.0)
[2021-10-08 06:30] LABS: BASOPHILS % 0.8 % (0.0-2.0); EOSINOPHILS % 1.5 % (0.0-5.0); HEMATOCRIT. 36.3 % (36.0-48.0); HEMOGLOBIN. 11.9 g/dL (12.0-16.0); LYMPHOCYTES % 18.8 % (20.0-50.0); MEAN CORPUSCULAR VOLUME 88.3 fL (81.0-99.0); MEAN PLATELET VOLUME 10.3 fl (7.4-10.4); MONOCYTES % 9.6 % (2.0-8.0); NEUTROPHILS % 69.3 % (40.0-76.0); PLATELET 262 x1000/uL (130-400); RED BLOOD CELL COUNT 4.11 mill/uL (4.2-5.4); RED CELL DISTRIBUTION WIDTH 14.9 % (11.6-14.6)
[2021-10-08] MEDS: FUROSEMIDE 40MG/4ML VIAL IVP SCH ×3 (06:45→17:52)
[2021-10-08] MEDS: BLOOD SUGAR DIAGNOSTIC STRIP TEST SCH ×3 (06:45→12:00)
[2021-10-08 08:00] VITALS: BP 153/86
[2021-10-08 08:29] LABS: PHOSPHORUS 3.3 mg/dL (2.5-4.9)
[2021-10-08] MEDS: IPRATROPIUM/ALBUTEROL 0.5-3(2.5)MG/3ML NEB HHN SCH ×3 (09:35→20:54)
[2021-10-08] MEDS: ASPIRIN 81MG TABLET PO SCH (09:53)
[2021-10-08] MEDS: PANTOPRAZOLE SODIUM 40 MG/VIAL IV SCH (09:53)
[2021-10-08] MEDS: METOCLOPRAMIDE HCL 10MG/2ML VIAL IV SCH ×2 (09:53→17:52)
[2021-10-08] MEDS: SODIUM HYPOCHLORITE 0.125% 473ML SOLUTION TOP SCH (09:54)
[2021-10-08 12:00] VITALS: BP 138/79
[2021-10-08 16:00] VITALS: BP 110/73
[2021-10-08] MEDS ORDERED: WARFARIN SODIUM 10MG TABLET PO NR (18:00)
[2021-10-08 20:00] VITALS: BP 128/66
[2021-10-09] VITALS: BP 139/90
[2021-10-09] MEDS: IPRATROPIUM/ALBUTEROL 0.5-3(2.5)MG/3ML NEB HHN SCH ×4 (02:12→21:11)
[2021-10-09 04:00] VITALS: BP 126/77
[2021-10-09] MEDS: INSULIN LISPRO 100 UNITS/ML SUBCUT SCH ×4 (06:00→18:00)
[2021-10-09 06:17] LABS: INR 1.9; PROTHROMBIN TIME 19.4 sec (9.6-11.0)
[2021-10-09] MEDS: BLOOD SUGAR DIAGNOSTIC STRIP TEST SCH ×4 (06:45→18:00)
[2021-10-09] MEDS: FUROSEMIDE 40MG/4ML VIAL IVP SCH ×2 (07:00→18:24)
[2021-10-09] MEDS ORDERED: NALOXONE HCL 0.4MG/ML VIAL IV PRN (09:00)
[2021-10-09] MEDS: ASPIRIN 81MG TABLET PO SCH (09:23)
[2021-10-09] MEDS: METOCLOPRAMIDE HCL 10MG/2ML VIAL IV SCH ×2 (09:23→18:24)
[2021-10-09] MEDS: SODIUM HYPOCHLORITE 0.125% 473ML SOLUTION TOP SCH (09:24)
[2021-10-09] MEDS: PANTOPRAZOLE SODIUM 40 MG/VIAL IV SCH (09:24)
[2021-10-09] MEDS: HYDROCODONE/ACETAMINOPHEN 10/325MG TABLET PO PRN (09:24)
[2021-10-09 12:00] VITALS: BP 132/77
[2021-10-09] MEDS ORDERED: INSLIS SUBCUT (14:14)
[2021-10-09] MEDS ORDERED: FURO-151 MT (14:14)
[2021-10-09 16:00] VITALS: BP 132/75
[2021-10-09] MEDS ORDERED: WARFARIN SODIUM 10MG TABLET PO NR (18:00)
[2021-10-09 20:00] VITALS: BP 121/79
[2021-10-10] VITALS: BP 128/86
[2021-10-10] MEDS: IPRATROPIUM/ALBUTEROL 0.5-3(2.5)MG/3ML NEB HHN SCH ×3 (01:24→14:50)
[2021-10-10 04:00] VITALS: BP 127/70
[2021-10-10] MEDS: INSULIN LISPRO 100 UNITS/ML SUBCUT SCH ×4 (06:00→18:00)
[2021-10-10] MEDS: BLOOD SUGAR DIAGNOSTIC STRIP TEST SCH ×4 (06:35→18:33)
[2021-10-10] MEDS: FUROSEMIDE 40MG/4ML VIAL IVP SCH ×2 (06:36→18:37)
[2021-10-10] MEDS: HYDROCODONE/ACETAMINOPHEN 10/325MG TABLET PO PRN (06:36)
[2021-10-10 07:23] LABS: INR 2.5; PROTHROMBIN TIME 24.6 sec (9.6-11.0)
[2021-10-10 08:00] VITALS: BP 125/69
[2021-10-10] MEDS: ASPIRIN 81MG TABLET PO SCH (10:10)
[2021-10-10] MEDS: PANTOPRAZOLE SODIUM 40 MG/VIAL IV SCH (10:11)
[2021-10-10] MEDS: METOCLOPRAMIDE HCL 10MG/2ML VIAL IV SCH ×2 (10:11→18:37)
[2021-10-10] MEDS: SODIUM HYPOCHLORITE 0.125% 473ML SOLUTION TOP SCH (10:12)
[2021-10-10 12:00] VITALS: BP 128/78
[2021-10-10 16:00] VITALS: BP 129/80
[2021-10-10] MEDS ORDERED: WARFARIN SODIUM 5MG TABLET PO NR (18:00)
[2021-10-10 20:00] VITALS: BP 119/67
[2021-10-11] VITALS: BP 124/80
[2021-10-11 04:00] VITALS: BP 135/71
[2021-10-11] MEDS: INSULIN LISPRO 100 UNITS/ML SUBCUT SCH ×4 (06:00→18:00)
[2021-10-11] MEDS: BLOOD SUGAR DIAGNOSTIC STRIP TEST SCH ×4 (06:00→18:00)
[2021-10-11] MEDS: FUROSEMIDE 40MG/4ML VIAL IVP SCH ×2 (06:59→19:02)
[2021-10-11 07:05] LABS: PROTHROMBIN TIME 41.9 sec (9.6-11.0)
[2021-10-11 07:11] LABS: CHLORIDE 102 mEq/L (98-107)
[2021-10-11 07:56] LABS: INR 4.4
[2021-10-11 08:00] VITALS: BP 92/54
[2021-10-11] MEDS: IPRATROPIUM/ALBUTEROL 0.5-3(2.5)MG/3ML NEB HHN SCH ×2 (08:22→12:21)
[2021-10-11 08:30] LABS: BASOPHILS % 0.7 % (0.0-2.0); EOSINOPHILS % 3.9 % (0.0-5.0); HEMATOCRIT. 37.1 % (36.0-48.0); HEMOGLOBIN. 12.1 g/dL (12.0-16.0); LYMPHOCYTES % 21.4 % (20.0-50.0); MEAN CORPUSCULAR HEMOGLOBIN 28.5 pg (28.0-32.0); MEAN CORPUSCULAR VOLUME 87.5 fL (81.0-99.0); MEAN PLATELET VOLUME 9.8 fl (7.4-10.4); MONOCYTES % 10.1 % (2.0-8.0); NEUTROPHILS % 63.9 % (40.0-76.0); PLATELET 301 x1000/uL (130-400); RED BLOOD CELL COUNT 4.24 mill/uL (4.2-5.4)
[2021-10-11] MEDS ORDERED: POTASSIUM CHLORIDE 20MEQ TABLET SR PO NR (09:44)
[2021-10-11] MEDS: SODIUM HYPOCHLORITE 0.125% 473ML SOLUTION TOP SCH (09:58)
[2021-10-11] MEDS: ASPIRIN 81MG TABLET PO SCH (09:59)
[2021-10-11] MEDS: METOCLOPRAMIDE HCL 10MG/2ML VIAL IV SCH ×2 (10:00→19:02)
[2021-10-11] MEDS: PANTOPRAZOLE SODIUM 40 MG/VIAL IV SCH (10:00)
[2021-10-11 12:00] VITALS: BP 103/67
[2021-10-11 16:00] VITALS: BP 110/67
[2021-10-11 19:51] VITALS: BP 110/47
[2021-10-12] MEDS ORDERED: SODIUM HYPOCHLORITE (0.25%) 480ML SOLUTION (HALF STRENGTH) TOP SCH (09:00)
[2021-10-12] MEDS ORDERED: POVIDONE-IODINE 10% TOPICAL SOLN 240ML TOP SCH (09:00)
== END 2021-10-11 20:00 | DRG 710 ==
LOC: ER 21:38 → EDBEDREQSVC 23:52 → EDBEDREQTM 23:52 → EDBEDREQ 23:52 → EDBEDREQTM 09-23 00:35 → CVICU 09-23 23:50 → ENRESERV 09-24 01:02 → 6WST 10-06 19:08
PROVIDERS: ADMIT Family Medicine; ATTEND Family Medicine
PROC: 5A1955Z Respiratory Ventilation, Greater than 96 Consecutive Hours (ICD-10-PCS; principal; 2021-09-23)
PROC: 0BH17EZ Insertion of Endotracheal Airway into Trachea, Via Natural or Artificial Opening (ICD-10-PCS; 2021-09-23)
PROC: 05HY33Z Insertion of Infusion Device into Upper Vein, Percutaneous Approach (ICD-10-PCS; 2021-09-23)
PROC: B54NZZA Ultrasonography of Left Upper Extremity Veins, Guidance (ICD-10-PCS; 2021-09-23)
PROC: 0KBS3ZZ Excision of Right Lower Leg Muscle, Percutaneous Approach (ICD-10-PCS; 2021-09-25)
PROC: 4A10X4Z Monitoring of Central Nervous Electrical Activity, External Approach (ICD-10-PCS; 2021-10-01)
DX: A41.9 Sepsis, unspecified organism (principal); J96.01 Acute respiratory failure with hypoxia; I26.99 Other pulmonary embolism without acute cor pulmonale; I46.9 Cardiac arrest, cause unspecified; J69.0 Pneumonitis due to inhalation of food and vomit; N17.0 Acute kidney failure with tubular necrosis; G93.40 Encephalopathy, unspecified; D68.9 Coagulation defect, unspecified; E11.52 Type 2 diabetes mellitus with diabetic peripheral angiopathy with gangrene; R65.21 Severe sepsis with septic shock; I21.4 Non-ST elevation (NSTEMI) myocardial infarction; I42.9 Cardiomyopathy, unspecified; I50.43 Acute on chronic combined systolic (congestive) and diastolic (congestive) heart failure; M62.82 Rhabdomyolysis; N18.9 Chronic kidney disease, unspecified; N39.0 Urinary tract infection, site not specified; E11.22 Type 2 diabetes mellitus with diabetic chronic kidney disease; D64.9 Anemia, unspecified; E11.621 Type 2 diabetes mellitus with foot ulcer; E66.9 Obesity, unspecified; E87.0 Hyperosmolality and hypernatremia; F17.210 Nicotine dependence, cigarettes, uncomplicated; I13.0 Hypertensive heart and chronic kidney disease with heart failure and stage 1 through stage 4 chronic kidney disease, or unspecified chronic kidney disease; L97.519 Non-pressure chronic ulcer of other part of right foot with unspecified severity; R74.01 Elevation of levels of liver transaminase levels; I25.10 Atherosclerotic heart disease of native coronary artery without angina pectoris; I27.29 Other secondary pulmonary hypertension; I82.401 Acute embolism and thrombosis of unspecified deep veins of right lower extremity; I82.622 Acute embolism and thrombosis of deep veins of left upper extremity; Z20.822 Contact with and (suspected) exposure to COVID-19; I87.8 Other specified disorders of veins; Z79.01 Long term (current) use of anticoagulants; Z86.718 Personal history of other venous thrombosis and embolism; Z79.899 Other long term (current) drug therapy; Z78.1 Physical restraint status; Z68.37 Body mass index [BMI] 37.0-37.9, adult
CPT/HCPCS: 31500; 36415; 36556; 36600; 71045; 73206; 73590; 73620; 76770; 76881; 78580; 80048; 80053; 80076; 80202; 82140; 82375; 82550; 82553; 82570; 82805; 82962; 83605; 83735; 83880; 84100; 84145; 84156; 84481; 84484; 85014; 85018; 85025; 85651; 86140; 86705; 86709; 86803; 87070; 87075; 87077; 87186; 87340; 87426; 92610; 93005; 93306; 93923; 93970; 93971; 94002; 94003; 94640; 95816; 97022; 97162; 97166; 97530; 99291; C9113; C9803; J0692; J1644; J1815; J1940; J2185; J2250; J2270; J2405; J2765; J3010; J3370; J3430; J3490; J7042; J7050; J7060; J7070; J7608; Q9967; U0003; U0005

== ENCOUNTER 2021-10-15 18:59 | Emergency (ER) | payer MEDICARE, MEDICAID ==
[~2021-10-15] VITALS: Ht 167.6 cm; Wt 118.0 kg
[~2021-10-15 18:59] MED LIST changes: +FURO-151 MT; +INSLIS SUBCUT
[2021-10-15] MEDS ORDERED: MORPHINE SULFATE 4 MG/ML CPJ (NOT FOR IM USE) IV STA (23:16)
[2021-10-15] MEDS ORDERED: ONDANSETRON HCL 4MG/2ML INJ IV STA (23:16)
[2021-10-15] MEDS ORDERED: PIPERACILLIN/TAZ 3.375G PREMIX 50 ML IV ONE (23:30)
[2021-10-15] MEDS ORDERED: VANCOMYCIN 1 G PREMIX 200 ML IV ONE (23:30)
[2021-10-15] MEDS ORDERED: SODIUM CHLORIDE 0.9% 1,000 ML IV ONE (23:30)
[2021-10-16 00:44] LABS: BASOPHILS % 1.1 % (0.0-2.0); EOSINOPHILS % 3.6 % (0.0-5.0); HEMATOCRIT. 38.3 % (36.0-48.0); HEMOGLOBIN. 12.6 g/dL (12.0-16.0); LYMPHOCYTES % 29.2 % (20.0-50.0); MEAN CORPUSCULAR HEMOGLOBIN 28.8 pg (28.0-32.0); MEAN CORPUSCULAR VOLUME 87.8 fL (81.0-99.0); MEAN PLATELET VOLUME 8.3 fl (7.4-10.4); MONOCYTES % 9.3 % (2.0-8.0); NEUTROPHILS % 56.8 % (40.0-76.0); PLATELET 373 x1000/uL (130-400); RED BLOOD CELL COUNT 4.36 mill/uL (4.2-5.4); RED CELL DISTRIBUTION WIDTH 15.5 % (11.6-14.6)
[2021-10-16 00:58] LABS: CHLORIDE 100 mEq/L (98-107)
[2021-10-16] MEDS ORDERED: TETANUS AND DIPHTHERIA TOX/PF 0.5ML SYR (ADULT) IM ONE (04:15)
[2021-10-16 07:03] VITALS: BP 161/87
== END 2021-10-16 07:10 | disposition short-term general hospital (02) ==
LOC: ER 18:59 → CANBEDREQ 10-16 07:36
DX: T23.042A Burn of unspecified degree of multiple left fingers (nail), including thumb, initial encounter (principal); T25.031A Burn of unspecified degree of right toe(s) (nail), initial encounter; B96.89 Other specified bacterial agents as the cause of diseases classified elsewhere; I96 Gangrene, not elsewhere classified; I10 Essential (primary) hypertension; E78.00 Pure hypercholesterolemia, unspecified; Z86.718 Personal history of other venous thrombosis and embolism; Z79.01 Long term (current) use of anticoagulants; X11.8XXA Contact with other hot tap-water, initial encounter; Y93.89 Activity, other specified; Y92.128 Other place in nursing home as the place of occurrence of the external cause
CPT/HCPCS: 36415; 71045; 73130; 73630; 80053; 83605; 85025; 87040; 90471; 96365; 96367; 96375; 99291; J2270; J2405; J2543; J3370; J7030; 90714

== ENCOUNTER 2023-01-23 13:20 | Inpatient (IN) | payer MEDICARE, MEDICAID ==
[~2023-01-23] VITALS: Ht 172.7 cm; Wt 101.7 kg
[2023-01-23] VITALS (7 sets, daily range): BP systolic 75–106; BP diastolic 33–63
[2023-01-23] MEDS ORDERED: SODIUM CHLORIDE 0.9% 500 ML IV ONE (13:45)
[2023-01-23 15:59] LABS: HEMATOCRIT. 42.1 % (36.0-48.0); MEAN CORPUSCULAR HEMOGLOBIN 28.2 pg (28.0-32.0); MEAN PLATELET VOLUME 9.5 fl (7.4-10.4); PLATELET 179 x1000/uL (130-400); RED BLOOD CELL COUNT 4.95 mill/uL (4.2-5.4); RED CELL DISTRIBUTION WIDTH 15.7 % (11.6-14.6)
[2023-01-23 16:01] LABS: INR 1.2; PROTHROMBIN TIME 13.1 sec (9.6-11.0)
[2023-01-23 16:15] LABS: CHLORIDE 107 mEq/L (98-107)
[2023-01-23 16:21] LABS: PLATELET ESTIMATE NORMAL
[2023-01-23 16:37] LABS: ETHANOL BLOOD < 10 mg/dL
[2023-01-23] MEDS ORDERED: VANCOMYCIN 1G PREMIX 200 ML IV SCH (17:00)
[2023-01-23] MEDS ORDERED: ASPIRIN 325MG EC TABLET PO NR (17:00)
[2023-01-23] MEDS ORDERED: PIPERACILLIN/TAZ 3.375G PREMIX 50 ML IV NR (17:00)
[2023-01-23] MEDS ORDERED: PIPERACILLIN/TAZOBACTAM 3.375GM/50ML PREMIX IV ONE (17:00)
[2023-01-23] MEDS ORDERED: MORPHINE SULFATE 4 MG/ML CPJ (NOT FOR IM USE) IV NR (17:00)
[2023-01-23] MEDS ORDERED: NOREPINEPHRINE 8 MG in DEXT 5% WATER 242 ML IV PRN ×3 (18:30→23:15)
[2023-01-23] MEDS ORDERED: NOREPINEPHRINE 8MG/250ML PMX 250 ML IV ONE (18:30)
[2023-01-23] MEDS ORDERED: NOREPINEPHRINE 8MG/250ML PMX 250 ML IV PRN (18:30)
[2023-01-23] MEDS ORDERED: FENTANYL CITRATE/PF 50MCG/ML 2ML VIAL IV ONE (19:00)
[2023-01-23] MEDS ORDERED: LORAZEPAM 2MG/ML CPJ IV ONE (19:00)
[2023-01-23] MEDS ORDERED: GUAIFENESIN 200MG/10ML SUGAR FREE UDC PO PRN (20:15)
[2023-01-23] MEDS ORDERED: IPRATROPIUM/ALBUTEROL 0.5-3(2.5)MG/3ML NEB HHN PRN (20:15)
[2023-01-23] MEDS ORDERED: ENOXAPARIN 40MG/0.4ML SYR SUBCUT SCH ×2 (20:15→21:00)
[2023-01-23] MEDS ORDERED: PIPERACILLIN/TAZOBACTAM 3.375 G in DEXTROSE 5% WATER 50 ML IV SCH (20:15)
[2023-01-23] MEDS ORDERED: ONDANSETRON HCL 4MG/2ML INJ IV PRN (20:15)
[2023-01-23] MEDS ORDERED: DOCUSATE SODIUM 100MG CAPSULE PO PRN (20:15)
[2023-01-23] MEDS ORDERED: PHENYLEPHRINE 50 MG in DEXT 5% WATER 245 ML IV PRN (20:15)
[2023-01-23] MEDS ORDERED: MAGNESIUM/ALUMINUM HYDROXIDE/SIMETHICONE 30ML UDC PO PRN (20:15)
[2023-01-23] MEDS ORDERED: CLONIDINE 0.1MG TABLET PO PRN (20:15)
[2023-01-23] MEDS ORDERED: MORPHINE SULFATE 2 MG/ML CPJ (NOT FOR IM USE) IV PRN (20:15)
[2023-01-23] MEDS ORDERED: SODIUM CHLORIDE 0.9% 1,000 ML IV ONE (20:30)
[2023-01-23] MEDS ORDERED: NALOXONE HCL 0.4MG/ML VIAL IV PRN (20:45)
[2023-01-23] MEDS ORDERED: FUROSEMIDE 40MG/4ML VIAL IVP ONE (20:45)
[2023-01-23] MEDS: INSULIN LISPRO 100 UNITS/ML SUBCUT SCH (21:30)
[2023-01-23] MEDS ORDERED: DEXTROSE 50% WATER 50ML SYRINGE IV PRN (21:30)
[2023-01-23] MEDS: BLOOD SUGAR DIAGNOSTIC STRIP TEST SCH (22:00)
[2023-01-23] MEDS ORDERED: NOREPINEPHRINE 32 MG in DEXT 5% WATER 218 ML IV PRN (23:30)
[2023-01-24] VITALS (95 sets, daily range): BP systolic 56–135; BP diastolic 16–105
[2023-01-24] MEDS: PANTOPRAZOLE SODIUM 40 MG/VIAL IV SCH ×2 (00:43→20:08)
[2023-01-24] MEDS ORDERED: FUROSEMIDE 40MG/4ML VIAL IVP NR (00:45)
[2023-01-24 01:21] LABS: FOLIC ACID (FOLATE) SERUM 15.4 ng/mL (>5.38)
[2023-01-24 06:26] LABS: HEMATOCRIT. 40.4 % (36.0-48.0); HEMOGLOBIN. 13.2 g/dL (12.0-16.0); MEAN CORPUSCULAR HEMOGLOBIN 27.7 pg (28.0-32.0); MEAN CORPUSCULAR VOLUME 84.4 fL (81.0-99.0); MEAN PLATELET VOLUME 9.7 fl (7.4-10.4); PLATELET 170 x1000/uL (130-400); RED BLOOD CELL COUNT 4.78 mill/uL (4.2-5.4); RED CELL DISTRIBUTION WIDTH 15.5 % (11.6-14.6)
[2023-01-24 06:38] LABS: CHLORIDE 111 mEq/L (98-107)
[2023-01-24] MEDS: PIPERACILLIN/TAZOBACTAM 3.375 G in DEXTROSE 5% WATER 50 ML IV SCH ×3 (06:47→20:08)
[2023-01-24 06:55] LABS: HDL CHOLESTEROL 10 mg/dL (40-59); LDL CHOLESTEROL 89 mg/dL (5-100); PHOSPHORUS 3.9 mg/dL (2.5-4.9); T4 FREE 1.06 ng/dL (0.76-1.46)
[2023-01-24] MEDS: INSULIN LISPRO 100 UNITS/ML SUBCUT SCH ×4 (08:20→20:08)
[2023-01-24] MEDS: BLOOD SUGAR DIAGNOSTIC STRIP TEST SCH ×4 (08:29→20:08)
[2023-01-24] MEDS ORDERED: ENOXAPARIN 40MG/0.4ML SYR SUBCUT SCH (09:00)
[2023-01-24] MEDS ORDERED: VANCOMYCIN 1G PREMIX 200 ML IV NR (09:00)
[2023-01-24] MEDS ORDERED: PANTOPRAZOLE SODIUM 40 MG/VIAL IV SCH (09:00)
[2023-01-24] MEDS ORDERED: ACETAMINOPHEN 325MG TABLET PO PRN (10:00)
[2023-01-24] MEDS ORDERED: HYDR-4009 PO (10:10)
[2023-01-24] MEDS ORDERED: TRAM50TA3 PO (10:10)
[2023-01-24] MEDS ORDERED: IPRA3AMP31 IH (10:10)
[2023-01-24] MEDS ORDERED: TOPUD MT (10:10)
[2023-01-24] MEDS ORDERED: LISI40TA13 MT (10:10)
[2023-01-24] MEDS ORDERED: MULT400T8 MT (10:10)
[2023-01-24] MEDS ORDERED: APIX5TAB PO (10:10)
[2023-01-24] MEDS ORDERED: PROT20 PO (10:10)
[2023-01-24] MEDS ORDERED: AMLO10TA4 PO (10:10)
[2023-01-24 12:11] LABS: CLARITY URINE CLOUDY (CLEAR); COLOR URINE YELLOW (YELLOW); KETONES URINE NEGATIVE (NEGATIVE); LEUKOCYTE ESTERASE URINE NEGATIVE (NEGATIVE); NITRITE URINE NEGATIVE (NEGATIVE); OCCULT BLOOD URINE 3+ (NEGATIVE); PH URINE 5.5 (4.5-8.0); PROTEIN URINE 2+ (NEGATIVE); SPECIFIC GRAVITY URINE 1.021 (1.005-1.030)
[2023-01-24 12:42] LABS: PLATELET ESTIMATE NORMAL
[2023-01-24 13:18] LABS: *AMPHETAMINES SCREEN URINE NEGATIVE (NEGATIVE); *BARBITURATES SCREEN URINE NEGATIVE (NEGATIVE); *BENZODIAZEPINES SCREEN URINE NEGATIVE (NEGATIVE); *COCAINE SCREEN URINE NEGATIVE (NEGATIVE); CANNABINOID URINE SCREEN NEGATIVE (NEGATIVE); METHADONE URINE SCREEN NEGATIVE (NEGATIVE); OPIATES URINE SCREEN PRESUMTIVE POSITIVE (NEGATIVE); PHENCYCLIDINE URINE SCREEN NEGATIVE (NEGATIVE)
[2023-01-24] MEDS: AMLODIPINE 10MG TABLET PO SCH (15:00)
[2023-01-24] MEDS ORDERED: FUROSEMIDE 40MG TABLET PO SCH (15:00)
[2023-01-24] MEDS: LISINOPRIL 10MG TABLET PO SCH (15:15)
[2023-01-24] MEDS ORDERED: VANCOMYCIN 750MG PREMIX 150 ML IV SCH (16:00)
[2023-01-24] MEDS ORDERED: FUROSEMIDE 20MG/2ML VIAL IVP NR (17:00)
[2023-01-24] MEDS ORDERED: PNEUMOCOCCAL 23-VAL P-SAC VAC 0.5 ML IM ONE (21:00)
[2023-01-24] MEDS ORDERED: APIXABAN 5 MG TABLET PO SCH (21:00)
[2023-01-24] MEDS ORDERED: INFLUENZA VACCINE 05/PF 0.5 ML SYRINGE IM ONE (21:00)
[2023-01-25] VITALS (95 sets, daily range): BP systolic 77–126; BP diastolic 26–91
[2023-01-25] MEDS: PIPERACILLIN/TAZOBACTAM 3.375 G in DEXTROSE 5% WATER 50 ML IV SCH ×3 (06:24→20:55)
[2023-01-25 06:57] LABS: CHLORIDE 112 mEq/L (98-107)
[2023-01-25] MEDS: INSULIN LISPRO 100 UNITS/ML SUBCUT SCH ×4 (08:12→20:54)
[2023-01-25] MEDS: BLOOD SUGAR DIAGNOSTIC STRIP TEST SCH ×4 (08:12→20:54)
[2023-01-25] MEDS: AMLODIPINE 10MG TABLET PO SCH (09:00)
[2023-01-25] MEDS: LISINOPRIL 10MG TABLET PO SCH (09:00)
[2023-01-25] MEDS: SPIRONOLACTONE 25MG TABLET PO SCH ×2 (09:00→09:21)
[2023-01-25] MEDS: ASPIRIN 81MG TABLET PO SCH (09:36)
[2023-01-25] MEDS ORDERED: VANCOMYCIN 1500MG in DEXTROSE 5% WATER 250ML IV SCH (11:00)
[2023-01-25 15:32] LABS: BASOPHILS % 0.2 % (0.0-2.0); EOSINOPHILS % 0.5 % (0.0-5.0); HEMATOCRIT. 36.5 % (36.0-48.0); HEMOGLOBIN. 12.2 g/dL (12.0-16.0); LYMPHOCYTES % 13.1 % (20.0-50.0); MEAN CORPUSCULAR HEMOGLOBIN 28.3 pg (28.0-32.0); MEAN CORPUSCULAR VOLUME 84.6 fL (81.0-99.0); MEAN PLATELET VOLUME 9.3 fl (7.4-10.4); MONOCYTES % 4.3 % (2.0-8.0); NEUTROPHILS % 81.9 % (40.0-76.0); PLATELET 146 x1000/uL (130-400); RED BLOOD CELL COUNT 4.32 mill/uL (4.2-5.4); RED CELL DISTRIBUTION WIDTH 15.7 % (11.6-14.6)
[2023-01-25] MEDS: LISINOPRIL 40MG TABLET PO SCH (16:50)
[2023-01-25] MEDS: APIXABAN 5 MG TABLET PO SCH (18:00)
[2023-01-25] MEDS: PANTOPRAZOLE SODIUM 40 MG/VIAL IV SCH (20:55)
[2023-01-25] MEDS: VANCOMYCIN 750MG PREMIX 150 ML IV SCH (23:31)
[2023-01-26] VITALS (72 sets, daily range): BP systolic 87–137; BP diastolic 26–99
[2023-01-26] MEDS: PIPERACILLIN/TAZOBACTAM 3.375 G in DEXTROSE 5% WATER 50 ML IV SCH ×3 (05:59→22:04)
[2023-01-26 06:08] LABS: BASOPHILS % 0.1 % (0.0-2.0); EOSINOPHILS % 0.2 % (0.0-5.0); HEMOGLOBIN. 12.6 g/dL (12.0-16.0); LYMPHOCYTES % 13.3 % (20.0-50.0); MEAN CORPUSCULAR HEMOGLOBIN 27.9 pg (28.0-32.0); MEAN CORPUSCULAR VOLUME 84.1 fL (81.0-99.0); MEAN PLATELET VOLUME 9.2 fl (7.4-10.4); MONOCYTES % 5.5 % (2.0-8.0); NEUTROPHILS % 80.9 % (40.0-76.0); PLATELET 145 x1000/uL (130-400); RED BLOOD CELL COUNT 4.51 mill/uL (4.2-5.4); RED CELL DISTRIBUTION WIDTH 15.6 % (11.6-14.6)
[2023-01-26 06:23] LABS: CHLORIDE 113 mEq/L (98-107)
[2023-01-26] MEDS: BLOOD SUGAR DIAGNOSTIC STRIP TEST SCH ×4 (07:49→22:04)
[2023-01-26] MEDS: INSULIN LISPRO 100 UNITS/ML SUBCUT SCH ×4 (07:50→22:12)
[2023-01-26] MEDS: APIXABAN 5 MG TABLET PO SCH ×2 (08:38→16:50)
[2023-01-26] MEDS: ASPIRIN 81MG TABLET PO SCH (08:38)
[2023-01-26] MEDS: AMLODIPINE 10MG TABLET PO SCH (08:39)
[2023-01-26] MEDS: LISINOPRIL 40MG TABLET PO SCH (08:39)
[2023-01-26] MEDS: VANCOMYCIN 750MG PREMIX 150 ML IV SCH ×2 (10:55→22:38)
[2023-01-26] MEDS: IPRATROPIUM/ALBUTEROL 0.5-3(2.5)MG/3ML NEB HHN SCH ×2 (13:54→21:07)
[2023-01-26] MEDS: SILDENAFIL CITRATE 20MG TABLET PO SCH ×2 (13:57→22:05)
[2023-01-26] MEDS: PANTOPRAZOLE SODIUM 40 MG/VIAL IV SCH (22:04)
[2023-01-27] VITALS (7 sets, daily range): BP systolic 107–118; BP diastolic 49–72
[2023-01-27] MEDS: INSULIN LISPRO 100 UNITS/ML SUBCUT SCH ×4 (05:14→21:00)
[2023-01-27] MEDS: BLOOD SUGAR DIAGNOSTIC STRIP TEST SCH ×4 (05:14→21:01)
[2023-01-27] MEDS: SILDENAFIL CITRATE 20MG TABLET PO SCH ×3 (05:28→21:03)
[2023-01-27] MEDS: PIPERACILLIN/TAZOBACTAM 3.375 G in DEXTROSE 5% WATER 50 ML IV SCH ×3 (05:28→22:06)
[2023-01-27 05:56] LABS: BASOPHILS % 0.2 % (0.0-2.0); EOSINOPHILS % 0.3 % (0.0-5.0); HEMOGLOBIN. 12.6 g/dL (12.0-16.0); LYMPHOCYTES % 10.3 % (20.0-50.0); MEAN CORPUSCULAR HEMOGLOBIN 27.8 pg (28.0-32.0); MONOCYTES % 5.1 % (2.0-8.0); NEUTROPHILS % 84.1 % (40.0-76.0); RED BLOOD CELL COUNT 4.52 mill/uL (4.2-5.4); RED CELL DISTRIBUTION WIDTH 15.8 % (11.6-14.6)
[2023-01-27 05:58] LABS: CHLORIDE 112 mEq/L (98-107)
[2023-01-27] MEDS: IPRATROPIUM/ALBUTEROL 0.5-3(2.5)MG/3ML NEB HHN SCH ×3 (08:17→21:09)
[2023-01-27 10:37] LABS: MEAN PLATELET VOLUME 9.8 fl (7.4-10.4); PLATELET 189 x1000/uL (130-400)
[2023-01-27] MEDS: APIXABAN 5 MG TABLET PO SCH ×2 (11:07→17:37)
[2023-01-27] MEDS: ASPIRIN 81MG TABLET PO SCH (11:08)
[2023-01-27] MEDS: LISINOPRIL 40MG TABLET PO SCH (11:08)
[2023-01-27] MEDS: SPIRONOLACTONE 25MG TABLET PO SCH (11:08)
[2023-01-27] MEDS: AMLODIPINE 10MG TABLET PO SCH (11:09)
[2023-01-28] VITALS: BP 111/73
[2023-01-28] MEDS: IPRATROPIUM/ALBUTEROL 0.5-3(2.5)MG/3ML NEB HHN SCH ×3 (01:34→21:24)
[2023-01-28 04:00] VITALS: BP 107/63
[2023-01-28] MEDS: PIPERACILLIN/TAZOBACTAM 3.375 G in DEXTROSE 5% WATER 50 ML IV SCH ×3 (06:09→21:19)
[2023-01-28] MEDS: SILDENAFIL CITRATE 20MG TABLET PO SCH ×3 (06:10→21:20)
[2023-01-28] MEDS: BLOOD SUGAR DIAGNOSTIC STRIP TEST SCH ×4 (06:15→21:16)
[2023-01-28] MEDS: INSULIN LISPRO 100 UNITS/ML SUBCUT SCH ×4 (06:15→21:00)
[2023-01-28 06:37] LABS: BASOPHILS % 0.3 % (0.0-2.0); EOSINOPHILS % 0.8 % (0.0-5.0); HEMATOCRIT. 39.9 % (36.0-48.0); HEMOGLOBIN. 12.9 g/dL (12.0-16.0); LYMPHOCYTES % 11.5 % (20.0-50.0); MEAN CORPUSCULAR HEMOGLOBIN 27.4 pg (28.0-32.0); MEAN CORPUSCULAR VOLUME 84.7 fL (81.0-99.0); MEAN PLATELET VOLUME 9.4 fl (7.4-10.4); MONOCYTES % 4.9 % (2.0-8.0); NEUTROPHILS % 82.5 % (40.0-76.0); PLATELET 225 x1000/uL (130-400); RED BLOOD CELL COUNT 4.71 mill/uL (4.2-5.4); RED CELL DISTRIBUTION WIDTH 15.6 % (11.6-14.6)
[2023-01-28 08:00] VITALS: BP 112/66
[2023-01-28 09:04] LABS: CHLORIDE 111 mEq/L (98-107)
[2023-01-28] MEDS: APIXABAN 5 MG TABLET PO SCH ×2 (09:48→20:21)
[2023-01-28] MEDS: SPIRONOLACTONE 25MG TABLET PO SCH (09:48)
[2023-01-28] MEDS: ASPIRIN 81MG TABLET PO SCH (09:48)
[2023-01-28] MEDS: FAMOTIDINE 20MG TABLET PO SCH ×2 (09:48→21:19)
[2023-01-28] MEDS: AMLODIPINE 10MG TABLET PO SCH (09:49)
[2023-01-28] MEDS: LISINOPRIL 40MG TABLET PO SCH (09:49)
[2023-01-28] MEDS ORDERED: NITROGLYCERIN SPRAY/4.9GM CAN TL NR (11:30)
[2023-01-28 12:00] VITALS: BP 156/66
[2023-01-28] MEDS ORDERED: IOHEXOL-350 100 ML BOTTLE ONE (12:00)
[2023-01-28 16:00] VITALS: BP 97/56
[2023-01-28 20:00] VITALS: BP 114/50
[2023-01-29] VITALS: BP 115/69
[2023-01-29] MEDS: IPRATROPIUM/ALBUTEROL 0.5-3(2.5)MG/3ML NEB HHN SCH ×3 (01:18→14:47)
[2023-01-29 04:00] VITALS: BP 138/68
[2023-01-29] MEDS: SILDENAFIL CITRATE 20MG TABLET PO SCH ×3 (05:56→20:49)
[2023-01-29] MEDS: BLOOD SUGAR DIAGNOSTIC STRIP TEST SCH ×4 (06:03→20:27)
[2023-01-29] MEDS: INSULIN LISPRO 100 UNITS/ML SUBCUT SCH ×4 (06:03→20:27)
[2023-01-29 06:33] LABS: BASOPHILS % 0.5 % (0.0-2.0); EOSINOPHILS % 1.4 % (0.0-5.0); HEMATOCRIT. 39.7 % (36.0-48.0); HEMOGLOBIN. 13.3 g/dL (12.0-16.0); LYMPHOCYTES % 12.7 % (20.0-50.0); MEAN CORPUSCULAR VOLUME 83.9 fL (81.0-99.0); MEAN PLATELET VOLUME 9.2 fl (7.4-10.4); MONOCYTES % 6.4 % (2.0-8.0); PLATELET 257 x1000/uL (130-400); RED BLOOD CELL COUNT 4.73 mill/uL (4.2-5.4); RED CELL DISTRIBUTION WIDTH 15.7 % (11.6-14.6)
[2023-01-29 06:54] LABS: CHLORIDE 111 mEq/L (98-107)
[2023-01-29 08:00] VITALS: BP 100/64
[2023-01-29] MEDS: AMLODIPINE 10MG TABLET PO SCH (08:53)
[2023-01-29] MEDS: LISINOPRIL 40MG TABLET PO SCH (08:54)
[2023-01-29] MEDS: SPIRONOLACTONE 25MG TABLET PO SCH (09:01)
[2023-01-29] MEDS: FAMOTIDINE 20MG TABLET PO SCH ×2 (09:01→20:49)
[2023-01-29] MEDS: APIXABAN 5 MG TABLET PO SCH ×2 (09:02→17:38)
[2023-01-29] MEDS: ASPIRIN 81MG TABLET PO SCH (09:02)
[2023-01-29 12:00] VITALS: BP 100/47
[2023-01-29 12:49] VITALS: BP 100/47
[2023-01-29 16:00] VITALS: BP 105/52
== END 2023-01-29 21:20 | DRG 720 ==
LOC: ER 13:20 → CVICU 18:18 → 7EST 01-26 18:56
PROVIDERS: ADMIT Internal Medicine; ATTEND Internal Medicine
DX: A41.9 Sepsis, unspecified organism (principal); J96.00 Acute respiratory failure, unspecified whether with hypoxia or hypercapnia; N17.0 Acute kidney failure with tubular necrosis; G92.8 Other toxic encephalopathy; R65.21 Severe sepsis with septic shock; E83.51 Hypocalcemia; I27.20 Pulmonary hypertension, unspecified; I21.4 Non-ST elevation (NSTEMI) myocardial infarction; I82.629 Acute embolism and thrombosis of deep veins of unspecified upper extremity; E87.20 Acidosis, unspecified; I13.0 Hypertensive heart and chronic kidney disease with heart failure and stage 1 through stage 4 chronic kidney disease, or unspecified chronic kidney disease; E11.22 Type 2 diabetes mellitus with diabetic chronic kidney disease; E11.42 Type 2 diabetes mellitus with diabetic polyneuropathy; E78.00 Pure hypercholesterolemia, unspecified; L03.115 Cellulitis of right lower limb; N18.9 Chronic kidney disease, unspecified; I50.9 Heart failure, unspecified; G89.4 Chronic pain syndrome; F17.200 Nicotine dependence, unspecified, uncomplicated; Z79.01 Long term (current) use of anticoagulants; Z86.718 Personal history of other venous thrombosis and embolism
CPT/HCPCS: 36415; 71045; 73718; 75571; 78580; 80048; 80053; 80061; 80202; 80305; 80320; 81003; 82607; 82746; 82962; 83036; 83605; 83735; 83880; 84100; 84145; 84439; 84443; 84484; 85025; 85379; 86141; 90732; 93005; 93306; 93970; 93971; 94640; 97162; 99291; A6261; C9113; J1650; J1940; J2060; J2270; J2543; J3010; J3370; J3490; J7040; J7060; Q9967; G0480